=== PATIENT | female | born 1950 ===

== ENCOUNTER 2023-01-26 06:00 | Outpatient (RCR) | payer MEDICARE, OTHER, SELFPAY | END 2023-02-04 23:59 | disposition home or self-care (01) | LOC: GPT 06:00 | PROVIDERS: Visit Provider Student in an Organized Health Care Education/Training Program | DX: M54.17 Radiculopathy, lumbosacral region (principal) | CPT/HCPCS: 97110; 97112; 97140; 97161 ==

== ENCOUNTER 2023-02-05 06:00 | Outpatient (RCR) | payer MEDICARE, OTHER, SELFPAY | END 2023-03-07 23:59 | disposition home or self-care (01) | LOC: GPT 06:00 | PROVIDERS: Visit Provider Student in an Organized Health Care Education/Training Program | DX: M54.17 Radiculopathy, lumbosacral region (principal) | CPT/HCPCS: 97110; 97112; 97140 ==

== ENCOUNTER 2023-03-08 06:00 | Outpatient (RCR) | payer MEDICARE, OTHER, SELFPAY | END 2023-03-30 23:59 | disposition home or self-care (01) | LOC: GPT 06:00 | PROVIDERS: Visit Provider Student in an Organized Health Care Education/Training Program | DX: M54.17 Radiculopathy, lumbosacral region (principal) | CPT/HCPCS: 97110; 97140; 97164 ==